=== PATIENT | female | born 1970 | race Caucasian/White ===

== ENCOUNTER 2021-05-15 12:05 | Emergency (ER) | payer OTHER, SELFPAY ==
[2021-05-15 12:55] VITALS: BP 144/65; PULSE 101; RESP 18; TEMP 36.3; O2SAT 100
--- NOTE | 2021-05-15 14:28 | ED.URI ---
HPI - URI/Sore Throat General Chief Complaint: Upper Respiratory Infection Stated Complaint: Sore Throat/Sinus Pain Source: patient and RN notes reviewed Mode of arrival: ambulatory History of Present Illness HPI Narrative: 50-year-old female presented for complaint of sore throat and productive cough of thick green sputum with associated head pressure and congestion and body aches. She has taken DayQuil with no relief. She denies shortness of breath, fever or chills. She endorses a sick contact, stating her daughter was tested today for Covid who has not been vaccinated and has similar symptoms. Patient has been vaccinated for Covid. Related Data Home Medications Medication Instructions Recorded Confirmed atorvastatin 05/15/21 citalopram mg 05/15/21 metformin mg PO 05/15/21 Allergies Allergy/AdvReac Type Severity Reaction Status Date / Time guaifenesin Allergy Unknown Itching Verified 05/01/18 14:04 Review of Systems Review of Systems: All systems reviewed & are unremarkable except as noted in HPI and below [facility] Family History Family History (Updated 05/15/21 @ 14:35 by Violeta De La O, KANDI) Other Family history non-contributory Exam Narrative: GENERAL: Ill-appearing, in no acute distress. HEAD: Normocephalic, atraumatic. EYES: EOMI. No redness or drainage. Conjunctivae normal. ENT: Mucous membranes pink and moist. Nares clear. No rhinorrhea. TMs normal bilaterally, bilateral canals erythematous. Throat erythematous. Uvula midline. NECK: Normal AROM. anterior cervical lymphadenopathy. CHEST: No respiratory distress. Clear to auscultation. HEART: Regular rate and rhythm. No murmur appreciated. Normal peripheral pulses. ABDOMEN: Soft, nontender, nondistended MUSCULOSKELETAL: No bony tenderness. EXTREMITIES: Normal range of motion. No edema. SKIN: Warm, dry, no rash. NEURO: No focal deficits. Alert and oriented x3. Gait steady. PSYCH: Normal affect. No signs of depression or anxiety. Course Course Emergency Course: Flu swab and strep swab negative, Covid test pending. Discharged home with instructions on supportive care and quarantine. Pt will start OTC meds zyrtec and flonase. Level of Care: Express Care Visit Vital Signs Vital signs: Vital Signs Temperature 97.4 F L 05/15/21 12:55 Pulse Rate 101 H 05/15/21 12:55 Respiratory Rate 18 05/15/21 12:55 Blood Pressure 144/65 H 05/15/21 12:55 Pulse Oximetry 100 05/15/21 12:55 Temperature 97.4 F L 05/15/21 12:55 Pulse Rate 101 H 05/15/21 12:55 Respiratory Rate 18 05/15/21 12:55 Blood Pressure 144/65 H 05/15/21 12:55 Pulse Oximetry 100 05/15/21 12:55 MDM - URI/Sore Throat Differential Diagnosis Differential diagnosis: Likely upper respiratory infection, sinusitis, viral infection and influenza Medical Records Attestation: I reviewed the patient's medical records. Lab Data Labs: Influenza A Screen Negative Reference Range: Negative Influenza B Screen Negative Reference Range: Negative Strep Screen Presumptive Negative *(Reference Range: Negative)* Discharge Plan Discharge Clinical Impression: Viral infection, Encounter for laboratory testing for COVID-19 virus Patient Disposition: Home, Self-Care Condition: Stable Instructions: Antibiotic Form, Viral Syndrome (ED), COVID-19 (Coronavirus Disease 2019) (ED) Additional Instructions: strep and flu swabs negative Remain quarantined valuate for your Covid results. Should your Covid test be positive remain quarantined for 5 more days. Then wear an N95 mask when out in public. Follow-up with your PCP as needed in 1-2 weeks Prescriptions: No Action atorvastatin 20 mg tablet RF: 0 citalopram 20 mg tablet RF: 0 metformin 500 mg tablet extended relea
[2021-05-16 22:11] LABS: SARS-CoV-2 RNA PCR Positive
== END 2021-05-15 14:46 | disposition home or self-care (01) ==
PROVIDERS: Emergency Provider Nurse Practitioner Family; PCP Nurse Practitioner Family
DX: U07.1 COVID-19 (principal)
CPT/HCPCS: 87081; 87804; 87880; 99203; C9803; G0463; U0003; U0005